=== PATIENT | female | born 1980 | race American Indian/Alaskan Native ===

== ENCOUNTER 2017-12-18 16:57 | Emergency (ER) | payer OTHER ==
[2017-12-18 17:27] VITALS: PULSE 87; RESP 18; O2SAT 97; BMI 40.4
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
[2017-12-18 20:55] VITALS: BP 142/87; TEMP 97.6
--- NOTE | 2017-12-19 08:33 | RAD ---
PROCEDURE: Radiographs of the Lumbar Spine. HISTORY: back pain COMPARISON: No prior. FINDINGS: BONES: Normal alignment. No listhesis. No fracture. DISC SPACES: Unremarkable. OTHER FINDINGS: Intrauterine contraceptive device (IUD) identified IMPRESSION: Unremarkable radiographs of the lumbar spine.
== END 2017-12-18 20:45 | disposition home or self-care (01) ==
LOC: ED 16:57
DX: M54.5 Low back pain (principal); V43.52XA Car driver injured in collision with other type car in traffic accident, initial encounter